=== PATIENT | male | born 1995 | race Two or more races ===

== ENCOUNTER 2020-11-06 08:00 | Emergency (ER) | payer OTHER ==
[~2020-11-06] VITALS: Ht 180.3 cm; Wt 98.0 kg
[2020-11-06 08:02] VITALS: BP 153/116
[2020-11-06 08:45] LABS: Urine Bacteria NONE SEEN /hpf (None Seen); Urine Blood Negative /uL (Negative); Urine Mucus FEW (None Seen); Urine Specific Gravity 1.024 (1.001-1.035); Urine WBC 1 /hpf (0 - 3)
[2020-11-06] MEDS ORDERED: KETOROLAC TROMETH 60MG/2ML VIAL IM ONE (08:45)
== END 2020-11-06 09:11 | disposition home or self-care (01) ==
LOC: ER 08:00
DX: S39.012A Strain of muscle, fascia and tendon of lower back, initial encounter (principal); X50.0XXA Overexertion from strenuous movement or load, initial encounter; Y93.89 Activity, other specified; Y92.89 Other specified places as the place of occurrence of the external cause; Y99.8 Other external cause status
CPT/HCPCS: 81001; 96372; 99283; J1885

== ENCOUNTER 2022-04-11 08:59 | Emergency (ER) | payer MEDICAID ==
[~2022-04-11] VITALS: Ht 180.3 cm; Wt 97.8 kg
[~2022-04-11 08:59] MED LIST: IBUP800T27 PO; METH750T22 PO
[2022-04-11 09:35] VITALS: BP 149/103
[2022-04-11] MEDS ORDERED: KETOROLAC TROMETH 60MG/2ML VIAL IM ONE (09:45)
[2022-04-11] MEDS ORDERED: HYDR-4902 PO (10:20)
== END 2022-04-11 10:26 | disposition home or self-care (01) ==
LOC: ER 08:59
DX: M54.50 Low back pain, unspecified (principal); Z79.1 Long term (current) use of non-steroidal anti-inflammatories (NSAID); Z79.899 Other long term (current) drug therapy
CPT/HCPCS: 96372; 99283; J1885